=== PATIENT | female | born 1995 | race African-American/Black ===

== ENCOUNTER 2022-01-01 17:54 | Emergency (ER) | payer MEDICAID, OTHER ==
[~2022-01-01] VITALS: Ht 167.6 cm; Wt 89.0 kg
[2022-01-01 17:55] VITALS: BP 127/77
[2022-01-01] MEDS ORDERED: DEXAMETHASONE 4MG TABLET PO ONE (19:30)
[2022-01-01 21:58] LABS: BASOPHILS % 0.4 % (0.0-2.0); EOSINOPHILS % 0.4 % (0.0-5.0); HEMATOCRIT. 41.5 % (36.0-48.0); LYMPHOCYTES % 12.1 % (20.0-50.0); MEAN CORPUSCULAR HEMOGLOBIN 32.8 pg (28.0-32.0); MEAN CORPUSCULAR VOLUME 96.8 fL (81.0-99.0); MEAN PLATELET VOLUME 7.9 fl (7.4-10.4); MONOCYTES % 8.7 % (2.0-8.0); NEUTROPHILS % 78.4 % (40.0-76.0); PLATELET 265 x1000/uL (130-400); RED BLOOD CELL COUNT 4.29 mill/uL (4.2-5.4); RED CELL DISTRIBUTION WIDTH 12.9 % (11.6-14.6)
[2022-01-01] MEDS ORDERED: DIATRIZOATE MEGLUMINE 300ML INFUS BTL UR ONE (22:27)
[2022-01-01] MEDS ORDERED: IOHEXOL-300 100 ML BOTTLE ONE (22:28)
[2022-01-01] MEDS ORDERED: AZIT250T12 MT (23:44)
== END 2022-01-02 00:10 | disposition home or self-care (01) ==
LOC: ER 17:54
DX: J03.90 Acute tonsillitis, unspecified (principal); R51.9 Headache, unspecified
CPT/HCPCS: 36415; 70491; 85025; 99285; J8540; Q9958; Q9967; 99284